=== PATIENT | male | born 1945 | race Two or more races ===

== ENCOUNTER 2025-02-14 20:26 | Inpatient (IN) | payer MEDICARE, OTHER ==
[~2025-02-14] VITALS: Ht 165.1 cm; Wt 68.9 kg
[2025-02-14 21:08] LABS: PLATELET COUNT (AUTO) 222 K/uL (150-450); RED BLOOD CELL COUNT(AUTO) 4.39 MIL/uL (4.5-6.0); RED CELL DISTRIBUTION WIDTH 13.7 % (11.5-15.0); WHITE BLOOD COUNT (AUTO) 6.4 K/uL (4.3-11.0)
[2025-02-14 21:14] LABS: CALCIUM, SERUM 8.6 mg/dL (8.5-10.1); CREATININE 1.1 mg/dL (0.6-1.3); SODIUM SERUM 133 mmol/L (136-145); UREA NITROGEN, BLOOD 28 mg/dL (7-18)
[2025-02-14 21:20] LABS: ASPARTATE AMINOTRANSFERASE 13 U/L (15-37); TOTAL PROTEIN, SERUM 7.1 g/dL (6.4-8.2)
[2025-02-14 21:23] LABS: ALCOHOL, BLOOD < 3 mg/dL (0-10)
[2025-02-14 21:52] LABS: APPEARANCE,URINE CLOUDY (CLEAR); BLOOD, URINE TRACE-INTA Ery/uL (NEGATIVE); LEUKOCYTE ESTERASE ,URINE 3+ (NEGATIVE); NITRITE, URINE POSITIVE (NEGATIVE); UGLUCOSE NEGATIVE (NEGATIVE)
[2025-02-14 22:02] LABS: AMPHETAMINE, URINE NEGATIVE (NEGATIVE); BARBITURATE, URINE NEGATIVE (NEGATIVE); BENZODIAZEPINE, URINE NEGATIVE (NEGATIVE); CANNABINOID, URINE NEGATIVE (NEGATIVE); COCCAINE, URINE NEGATIVE (NEGATIVE); OPIATE, URINE NEGATIVE (NEGATIVE)
[2025-02-14 22:15] LABS: ADD URINE CULTURE YES; SQUAMOUS EPITHELIAL CELL,UR 0-2 /HPF (None Seen)
[2025-02-15] MEDS ORDERED: CEFTRIAXONE 1 G VIAL ONE (01:00)
[2025-02-15] MEDS ORDERED: OLANZAPINE 10 MG VIAL IM ONE (01:00)
[2025-02-15] MEDS: CEFTRIAXONE 1 G VIAL IM ONE (01:09)
[2025-02-15] MEDS: OLANZAPINE 10 MG VIAL IM ONE (01:09)
[2025-02-15] MEDS ORDERED: CEPHALEXIN MONOHYDRATE 500 MG CAPSULE PO ONE (01:22)
[2025-02-15] MEDS: CEPHALEXIN MONOHYDRATE 500 MG CAPSULE PO SCH (01:26)
[2025-02-15] MEDS ORDERED: MAG HYDROX/AL HYDROX/SIMETH 30 ML UDC PO PRN (02:30)
[2025-02-15] MEDS ORDERED: ZOLPIDEM TARTRATE 5 MG TABLET PO PRN ×2 (02:30)
[2025-02-15] MEDS ORDERED: QUETIAPINE FUMARATE 25 MG TABLET PO PRN (02:30)
[2025-02-15] MEDS ORDERED: MAGNESIUM HYDROXIDE 30 ML UDC PO PRN ×2 (02:30→11:00)
[2025-02-15] MEDS ORDERED: ACETAMINOPHEN 325 MG TABLET PO PRN (02:30)
[2025-02-15] MEDS: BLOOD SUGAR DIAGNOSTIC 1 EACH STRIP IN ONE (02:35)
[2025-02-15 03:25] VITALS: BP 151/112; TEMP 98.4
[2025-02-15] MEDS: QUETIAPINE FUMARATE 25 MG TABLET PO PRN (04:13)
[2025-02-15 08:00] VITALS: BP 130/100; TEMP 98.7; O2SAT 100
[2025-02-15] MEDS ORDERED: DOCU100C36 PO (08:17)
[2025-02-15] MEDS ORDERED: ATOR40TA PO (08:17)
[2025-02-15] MEDS ORDERED: NA P133E RC (08:17)
[2025-02-15] MEDS ORDERED: AMLO2.5T4 PO (08:17)
[2025-02-15] MEDS ORDERED: METO25TA4 PO (08:17)
[2025-02-15] MEDS ORDERED: CLOP75TA15 PO (08:17)
[2025-02-15] MEDS ORDERED: ACET325T53 PO (08:17)
[2025-02-15] MEDS ORDERED: PREG50CA PO (08:17)
[2025-02-15] MEDS ORDERED: MULT-594 PO (08:17)
[2025-02-15] MEDS ORDERED: POLY17PO4 PO (08:17)
[2025-02-15] MEDS ORDERED: MAGN400O6 PO (08:17)
[2025-02-15] MEDS ORDERED: SENN-261 PO (08:17)
[2025-02-15] MEDS ORDERED: FAMO-131 PO (08:17)
[2025-02-15] MEDS ORDERED: BISA10SU11 RC (08:17)
[2025-02-15] MEDS ORDERED: MELA3TAB41 PO (08:17)
[2025-02-15] MEDS ORDERED: APIX2.5T PO (08:17)
[2025-02-15] MEDS: METOPROLOL SUCCINATE 25 MG TAB.SR.24H PO SCH (11:00)
[2025-02-15] MEDS: AMLODIPINE BESYLATE 2.5 MG TABLET PO SCH (11:00)
[2025-02-15] MEDS ORDERED: BISACODYL SUPP (10 MG) 10 MG/SUPP.RECT SUPP.RECT RC PRN (11:00)
[2025-02-15 16:00] VITALS: BP 110/73; TEMP 97.1; O2SAT 98
[2025-02-15] MEDS: DOCUSATE SODIUM 100 MG CAPSULE PO SCH (16:42)
[2025-02-15] MEDS: POLYETHYLENE GLYCOL 3350 17 GM POWD.PACK PO SCH (16:42)
[2025-02-15] MEDS: APIXABAN 2.5 MG TABLET PO SCH (16:43)
[2025-02-15 19:44] VITALS: BP 139/73; TEMP 97.8; O2SAT 99
[2025-02-15] MEDS: QUETIAPINE FUMARATE 25 MG TABLET PO SCH (21:12)
[2025-02-15] MEDS: ATORVASTATIN 40 MG TABLET PO SCH (21:12)
[2025-02-16 08:00] VITALS: BP 146/84; TEMP 97.7; O2SAT 97
[2025-02-16 08:24] LABS: LDL 41 mg/dL (0-99)
[2025-02-16] MEDS: FAMOTIDINE (20 MG) 20 MG TABLET PO SCH (08:39)
[2025-02-16] MEDS: CLOPIDOGREL BISULFATE 75 MG TABLET PO SCH (08:40)
[2025-02-16 12:28] LABS: ASPARTATE AMINOTRANSFERASE 26.0 U/L (15-37); CALCIUM, SERUM 8.8 mg/dL (8.5-10.1); CREATININE 0.8 mg/dL (0.6-1.3); SODIUM SERUM 137.0 mmol/L (136-145); TOTAL PROTEIN, SERUM 6.7 g/dL (6.4-8.2); UREA NITROGEN, BLOOD 20.0 mg/dL (7-18)
[2025-02-16 16:05] VITALS: BP 129/63; TEMP 97.3; O2SAT 96
[2025-02-16 20:24] VITALS: BP 100/54; TEMP 97.6; O2SAT 99
[2025-02-17] MEDS ORDERED: Z GUARD REMEDY 4 OZ OINT TP PRN (00:30)
[2025-02-17 08:00] VITALS: BP 156/70; TEMP 98.4; O2SAT 97
[2025-02-17] MEDS: Z GUARD REMEDY 4 OZ OINT TP SCH (09:18)
[2025-02-17] MEDS: METOPROLOL SUCCINATE 25 MG TAB.SR.24H PO ONE (11:22)
[2025-02-17] MEDS: OLANZAPINE 10 MG VIAL IM STA (14:23)
[2025-02-17 16:00] VITALS: BP 100/60; TEMP 98.6; O2SAT 96
[2025-02-17] MEDS: MIRTAZAPINE 15 MG TABLET PO SCH (21:25)
[2025-02-18 02:05] VITALS: BP 149/76; TEMP 98.4; O2SAT 97
[2025-02-18] MEDS: CLOTRIMAZOLE 1% 15 GM TUBE TP SCH (08:26)
[2025-02-18] MEDS: METOPROLOL SUCCINATE 25 MG TAB.SR.24H PO SCH (08:31)
[2025-02-18] MEDS: OXCARBAZEPINE 150 MG TABLET PO SCH (11:09)
[2025-02-18 17:00] VITALS: BP 115/57; TEMP 97.9; O2SAT 97
[2025-02-18 20:36] VITALS: BP 138/62; TEMP 97.9; O2SAT 98
[2025-02-19 08:00] VITALS: BP 131/74; TEMP 97.7; O2SAT 96
[2025-02-19 16:00] VITALS: BP 100/76; TEMP 97.7; O2SAT 95
[2025-02-19 20:29] VITALS: BP 112/62; TEMP 97.7; O2SAT 96
[2025-02-20 08:07] VITALS: BP 109/60; TEMP 97.7; O2SAT 96
[2025-02-20] MEDS: SULFAMETH/TRIMETH 800/160 MG 1 UDTAB TABLET PO SCH (15:32)
[2025-02-20 17:38] VITALS: BP 116/52; TEMP 98.2; O2SAT 98
[2025-02-20 20:36] VITALS: BP 150/74; TEMP 98.3; O2SAT 96
[2025-02-21 08:00] VITALS: BP 126/62; TEMP 97.8; O2SAT 97
[2025-02-21 08:11] VITALS: BP 126/62; TEMP 97.8; O2SAT 97
[2025-02-21 15:54] VITALS: BP 114/52; TEMP 98.2; O2SAT 97
[2025-02-21 20:00] VITALS: BP 112/59; TEMP 98; O2SAT 97
[2025-02-22 08:10] VITALS: BP 110/62; TEMP 97.8; O2SAT 96
[2025-02-22 16:04] VITALS: BP 118/82; TEMP 97.8; O2SAT 97
[2025-02-22 19:49] VITALS: BP 128/58; TEMP 97.7; O2SAT 96
[2025-02-23 08:00] VITALS: BP 117/63; TEMP 98.7; O2SAT 100
[2025-02-23 08:53] VITALS: BP 122/74
== END 2025-02-23 13:31 | DRG 885 ==
LOC: ER 20:28 → GPS 02-15 01:02
PROVIDERS: ADMIT Psychiatry & Neurology Psychiatry; ATTEND Nurse Practitioner Acute Care
DX: F39 Unspecified mood [affective] disorder (principal); F03.93 Unspecified dementia, unspecified severity, with mood disturbance; N39.0 Urinary tract infection, site not specified; I48.20 Chronic atrial fibrillation, unspecified; G93.40 Encephalopathy, unspecified; I69.354 Hemiplegia and hemiparesis following cerebral infarction affecting left non-dominant side; Z16.12 Extended spectrum beta lactamase (ESBL) resistance; F03.92 Unspecified dementia, unspecified severity, with psychotic disturbance; F03.918 Unspecified dementia, unspecified severity, with other behavioral disturbance; E78.5 Hyperlipidemia, unspecified; I10 Essential (primary) hypertension; Z20.822 Contact with and (suspected) exposure to COVID-19; F29 Unspecified psychosis not due to a substance or known physiological condition; Z73.6 Limitation of activities due to disability; F41.9 Anxiety disorder, unspecified; M20.42 Other hammer toe(s) (acquired), left foot; M20.41 Other hammer toe(s) (acquired), right foot; B35.3 Tinea pedis; R26.89 Other abnormalities of gait and mobility; B96.20 Unspecified Escherichia coli [E. coli] as the cause of diseases classified elsewhere; L84 Corns and callosities; I35.0 Nonrheumatic aortic (valve) stenosis; Z79.899 Other long term (current) drug therapy
CPT/HCPCS: 36415; 80048-TC; 80053-TC; 80061-TC; 80076-TC; 81001; 82962-TC; 85025-TC; 87081-TC; 87086-TC; 87186-TC; 97110-TC; 97112-TC; 97116-TC; 97530-TC; G0480; J0696; J3490